=== PATIENT | male | born 1940 | race Caucasian/White ===

== ENCOUNTER 2017-12-11 08:40 | Day surgery (SDC) | payer MEDICARE, OTHER ==
[2017-12-11] MEDS ORDERED: MEMA10 PO (09:47)
[2017-12-11] MEDS ORDERED: PARO20 PO (09:48)
[2017-12-11] MEDS ORDERED: ZESTORETIC 20-121 EA PO (09:48)
[2017-12-11] MEDS ORDERED: METO25 PO (09:49)
[2017-12-11] MEDS ORDERED: TAMS.4ER PO (09:50)
[2017-12-11] MEDS ORDERED: ELIQUIS5 MG PO (09:50)
== END 2017-12-11 12:45 | disposition home or self-care (01) ==
LOC: ORSCSDS 08:40
PROVIDERS: Urology
PROC: 0VT08ZZ Resection of Prostate, Via Natural or Artificial Opening Endoscopic (ICD-10-PCS; principal; 2017-12-11 10:20)
DX: N40.1 Benign prostatic hyperplasia with lower urinary tract symptoms (principal); E11.9 Type 2 diabetes mellitus without complications; F17.210 Nicotine dependence, cigarettes, uncomplicated; I10 Essential (primary) hypertension; I48.3 Typical atrial flutter; Z79.01 Long term (current) use of anticoagulants; Z79.82 Long term (current) use of aspirin; Z79.84 Long term (current) use of oral hypoglycemic drugs; Z79.899 Other long term (current) drug therapy
CPT/HCPCS: 82947; J0744; J1100; J2250; J2310; J2370; J2405; J3010; J7120